=== PATIENT | female | born 1980 | race Caucasian/White ===

== ENCOUNTER → 2017-02-17 | Outpatient (REF) | payer OTHER ==
[2017-02-17 10:37] LABS: REASON FOR REVIEW COMPREHENSIVE REVIEW
[2017-02-17 10:48] LABS: TOTAL PROTEIN 6.7 GM/DL (6.4-8.2)
[2017-02-17 10:51] LABS: ERYTHROCYTE SEDIMENTATION RATE 18 mm/hr (0-20)
[2017-02-19 00:06] LABS: FREE KAPPA LIGHT CHAINS SERUM 17.54 mg/L (3.30-19.40); FREE LAMBDA LIGHT CHAINS SERUM 22.07 mg/L (5.71-26.30); KAPPA/LAMBDA RATIO SERUM 0.79 (0.26-1.65)
[2017-02-20 13:24] LABS: ALBUMIN 3.79 GM/DL (3.29-5.55); ALBUMIN % 56.6 % (55.8-66.1); GAMMA GLOBULIN % 12.8 % (11.1-18.8)
== END ==
LOC: M LAB REF 10:08
PROVIDERS: ATTEND Internal Medicine Medical Oncology
DX: D56.9 Thalassemia, unspecified (principal); D64.9 Anemia, unspecified

== ENCOUNTER → 2019-03-27 | Outpatient (REF) | payer BC | LOC: M LAB REF 12:51 | PROVIDERS: ATTEND Physician Assistant | DX: J02.9 Acute pharyngitis, unspecified (principal) ==

== ENCOUNTER → 2020-03-02 | Outpatient (CLI) | payer BC | LOC: M SLEEP 20:00 | PROVIDERS: ATTEND Internal Medicine Pulmonary Disease | DX: G47.30 Sleep apnea, unspecified (principal) ==